=== PATIENT | male | born 1960 | race Caucasian/White ===

== ENCOUNTER 2019-04-28 07:11 | Emergency (ER) | payer BC ==
[~2019-04-28] VITALS: Ht 170.2 cm; Wt 87.3 kg
[2019-04-28] MEDS ORDERED: ONDANSETRON 4MG/2ML VIAL (J2405) IV ONE ×2 (07:45→08:00)
[2019-04-28] MEDS ORDERED: KETOROLAC 30 MG/ML VIAL (J1885) IV ONE (08:00)
[2019-04-28] MEDS ORDERED: NS 1,000 ML IV ONE (08:00)
[2019-04-28] MEDS: MORPHINE 4 MG/ML 1ML VIAL/SYRINGE (J2270) IV PRN ×2 (08:02→11:39)
[2019-04-28 08:31] LABS: BASO % 0.2 % (0.0-1.0); EOS % 0.2 % (0.0-3.0); HEMOGLOBIN 14.4 g/dl (13.5-17.5); LYMPH # 1.1 10^3/uL (1.5-4.5); LYMPH % 7.1 % (24.0-44.0); MEAN CORPUSCULAR HEMOGLOBIN 32.9 pg (27.0-33.0); MEAN CORPUSCULAR HGB CONC 34.3 g/dl (32.0-36.5); MEAN CORPUSCULAR VOLUME 95.9 fl (80.0-96.0); MONO # 1.4 10^3/uL (0.0-0.8); MONO % 8.9 % (0.0-5.0); NEUTROPHILS # 12.8 10^3/uL (1.8-7.7); NEUTROPHILS % 82.9 % (36.0-66.0); PLATELET COUNT, AUTOMATED 201 10^3/uL (150-450); RED BLOOD COUNT 4.38 10^6/uL (4.30-6.10); WHITE BLOOD COUNT 15.4 10^3/uL (4.0-10.0)
[2019-04-28] MEDS: GASTROGRAFIN SOLUTION 30ML PO SCH ×2 (08:36→09:10)
[2019-04-28] MEDS ORDERED: ISOVUE-370 76% 100ML VIAL (Q9967) As Ordered ONE (09:37)
[2019-04-28 09:44] LABS: BILIRUBIN,DIRECT 0.2 MG/DL (0.0-0.2); BILIRUBIN,TOTAL 0.9 MG/DL (0.2-1.0); POTASSIUM SERUM 4.3 MEQ/L (3.5-5.1); TOTAL PROTEIN 7.1 GM/DL (6.4-8.2)
--- NOTE | 2019-04-28 11:23 | ECGEPIP ---
[facility] - ED Test Date: 2019-04-28 Pat Name: REBECA ORNELAS Department: Room: - Gender: Male [employer]: : 1960 Requested By: Carina Loya PA-C Order Number: [id number] Reading MD: Luda Bazzi Measurements Intervals [place] Rate: 70 P: 29 SC: 137 QRS: 1 QRSD: 102 T: 9 QT: 373 QTc: 404 Interpretive Statements SINUS RHYTHM NSTTW abnormalities No prior Electronically Signed on 04-28-2019 11:23:25 EDT by Luda Bazzi
[2019-04-28] MEDS ORDERED: CIPR500T3 PO (12:33)
[2019-04-28] MEDS ORDERED: METR-265 PO (12:33)
[2019-04-28] MEDS ORDERED: IBUP80TA PO (12:33)
[2019-04-28] MEDS ORDERED: ENDO7.5T11 PO (12:33)
[2019-04-28 12:53] VITALS: BP 116/67
--- NOTE | 2019-04-28 15:02 | REP ---
Clinical: Lower abdominal pain. Technique: Axial contrast enhanced images from the lung bases to the pubic symphysis using oral (per protocol) and 100 ml Isovue 370 intravenous contrast material with coronal and sagittal re-formations. Comparison: None. Findings: Moderate mucosal thickening and pericolonic inflammatory stranding involves the midsigmoid colon within the pelvis with diffuse, but mild inflammatory changes within the mesentery and retroperitoneal space. Findings are consistent with acute diverticulitis. There is no drainable collection/abscess, free air or bowel obstruction. Remainder of the small large bowel is grossly unremarkable. Liver demonstrates few small subcentimeter hypodensities likely representing cysts. Spleen, pancreas, gallbladder, bilateral adrenal glands appear normal. A 3.7 cm right renal hypodensity is most compatible with cyst. Mild bilateral perinephric stranding is nonspecific. There is no hydroureteronephrosis or nephroureterolithiasis. Further evaluation of the pelvis demonstrates normal bladder and age appropriate prostate/seminal vesicles along with small forming left fat containing inguinal hernia. No ascites. No free air. No adenopathy. Abdominal aorta without aneurysm or dissection. Musculoskeletal structures demonstrate age-related changes without focal osseous abnormality. Lung bases are clear. Impression: 1. Mucosal thickening to the midsigmoid colon along with surrounding mild inflammatory changes to the mesentery and retroperitoneum is most compatible with acute sigmoid diverticulitis. No associated bowel obstruction, perforation, or drainable collection/abscess noted. 2. Hepatic and right renal hypodensities likely representing cysts. 3. Mild bilateral perinephric stranding is nonspecific and correlation with urinalysis may be warranted to exclude pyelonephritis. Electronically Signed by Ata Pennington MD 04/28/2019 10:00 A
== END 2019-04-28 13:13 | disposition home or self-care (01) ==
LOC: M ED 07:11
DX: K57.32 Diverticulitis of large intestine without perforation or abscess without bleeding (principal); R19.7 Diarrhea, unspecified; K59.00 Constipation, unspecified; Z20.9 Contact with and (suspected) exposure to unspecified communicable disease; G20 Parkinson's disease; R31.9 Hematuria, unspecified; F17.290 Nicotine dependence, other tobacco product, uncomplicated
CPT/HCPCS: 74177; 80047; 80076; 81001; 83690; 85025; 93005; 96361; 96374; 96375; 96376; 99284; J1885; J2270; J2405; Q9963; Q9967

== ENCOUNTER 2024-08-17 14:52 | Inpatient (IN) | payer BC, MEDICARE ==
[~2024-08-17] VITALS: Ht 170.2 cm; Wt 84.1 kg
[~2024-08-17 14:52] MED LIST: CIPR500T3 PO; ENDO7.5T11 PO; IBUP80TA PO; METR-265 PO
[2024-08-17] MEDS ORDERED: SILD50TA2 (15:01)
[2024-08-17 15:41] LABS: BASO % 0.3 % (0.0-1.0); EOS # 0.1 10^3/uL (0.0-0.5); EOS % 0.7 % (0.0-3.0); HEMATOCRIT 40.8 % (42.0-52.0); HEMOGLOBIN 13.9 g/dl (13.5-17.5); LYMPH # 1.5 10^3/uL (1.5-5.0); LYMPH % 21.3 % (24.0-44.0); MEAN CORPUSCULAR HEMOGLOBIN 32.9 pg (27.0-33.0); MEAN CORPUSCULAR HGB CONC 34.1 g/dl (32.0-36.5); MEAN CORPUSCULAR VOLUME 96.7 fl (80.0-96.0); MONO # 0.8 10^3/uL (0.0-0.8); MONO % 10.5 % (2.0-8.0); NEUTROPHILS # 4.8 10^3/uL (1.5-8.5); NEUTROPHILS % 67.1 % (36.0-66.0); PLATELET COUNT, AUTOMATED 218 10^3/uL (150-450); RED BLOOD COUNT 4.22 10^6/uL (4.30-6.10); WHITE BLOOD COUNT 7.1 10^3/uL (4.0-10.0)
[2024-08-17 16:06] LABS: LIPASE 31 U/L (12-53)
[2024-08-17 16:08] LABS: ALBUMIN 3.6 G/DL (3.2-5.2); ALKALINE PHOSPHATASE 55 U/L (46-116); ALT/SGPT 15 U/L (7.0-40); AST/SGOT 17 U/L (<34); BILIRUBIN,DIRECT 0.2 MG/DL (<0.4); BILIRUBIN,TOTAL 0.7 MG/DL (0.3-1.2); BLOOD UREA NITROGEN 18 MG/DL (9-23); CALCIUM LEVEL 9.6 MG/DL (8.3-10.6); CARBON DIOXIDE LEVEL 29 MMOL/L (20-31); CHLORIDE LEVEL 108 MMOL/L (98-107); CREATININE FOR GFR 0.91 MG/DL (0.70-1.30); GLOMERULAR FILTRATION RATE > 60.0 (>49); GLUCOSE, FASTING 95 MG/DL (74-106); POTASSIUM SERUM 4.9 MMOL/L (3.5-5.1); SODIUM LEVEL 138 MMOL/L (136-145); TOTAL PROTEIN 6.8 G/DL (5.7-8.2)
[2024-08-17] MEDS ORDERED: ISOVUE-370 76% 100ML VIAL As Ordered ONE (20:39)
[2024-08-17] MEDS: NS 1,000 ML IV ONE (23:01)
[2024-08-17] MEDS ORDERED: MED REC IN PROGRESS XX SCH (23:35)
[2024-08-17] MEDS ORDERED: MORPHINE 4 MG/ML 1ML VIAL IV PRN (23:40)
[2024-08-17] MEDS ORDERED: ACETAMINOPHEN 325 MG TAB PO PRN (23:40)
[2024-08-18] MEDS ORDERED: IBUP200C25 PO (00:17)
[2024-08-18] MEDS ORDERED: HOME MED LIST COMPLETE! XX SCH (00:20)
[2024-08-18] MEDS ORDERED: NICOTINE POLACRILEX 2 MG GUM PO PRN (01:00)
[2024-08-18] MEDS ORDERED: NICOTINE 7 MG/24 HR TRANSDERMAL TD PRN (01:00)
[2024-08-18 01:17] LABS: ERYTHROCYTE SEDIMENTATION RATE 29 mm/hr (0-20)
[2024-08-18] MEDS: MINI IV SCH ×2 (01:29→15:40)
[2024-08-18] MEDS: DEXTROSE 5% IV SCH ×2 (01:29→15:40)
[2024-08-18] MEDS: ADV IV SCH ×2 (01:29→15:40)
[2024-08-18] MEDS: CEFOTETAN DISODIUM IV SCH ×2 (01:29→15:40)
[2024-08-18 10:27] LABS: INR 1.06; PROTHROMBIN TIME 13.5 SECONDS (12.5-14.5)
[2024-08-18] MEDS ORDERED: MIDAZOLAM INJ 2MG/2ML VIAL As Ordered ONE (12:00)
[2024-08-18] MEDS ORDERED: SUGAMMADEX SODIUM 500 MG/5 ML VIAL (BRIDION) As Ordered ONE (12:00)
[2024-08-18] MEDS ORDERED: KETOROLAC 60MG 2ML VIAL As Ordered ONE (12:00)
[2024-08-18] MEDS ORDERED: ONDANSETRON 4MG 2ML VIAL As Ordered ONE (12:00)
[2024-08-18] MEDS ORDERED: LIDOCAINE 2% 100MG/5ML SDV (FOR ANES.) As Ordered ONE (12:00)
[2024-08-18] MEDS ORDERED: fentaNYL 250 MCG/5 ML INJECTION As Ordered ONE (12:00)
[2024-08-18] MEDS ORDERED: propofoL 200 MG/20 ML VIAL As Ordered ONE (12:00)
[2024-08-18] MEDS ORDERED: ROCURONIUM BROMIDE 50MG/5ML VIAL As Ordered ONE (12:00)
[2024-08-18] MEDS ORDERED: ACETAMINOPHEN 1000MG 100ML IV BAG As Ordered ONE (12:01)
[2024-08-18] MEDS ORDERED: ePHEDrine SULFATE 25 MG/5 ML(5MG/ML) SYRINGE As Ordered ONE (12:31)
[2024-08-18] MEDS ORDERED: HYDROMORPHONE HCL 0.5 MG/ 0.5 ML SYRINGE IV PRN (12:45)
[2024-08-18] MEDS ORDERED: METOCLOPRAMIDE INJ 10MG/2ML VIAL IV PRN (12:45)
[2024-08-18] MEDS: LR 1,000 ML IV SCH (12:45)
[2024-08-18] MEDS ORDERED: fentaNYL 100 MCG/2 ML INJECTION IV PRN (12:45)
[2024-08-18] MEDS ORDERED: diphenhydrAMINE 50MG/ML VIAL IV PRN (12:45)
[2024-08-18] MEDS ORDERED: MEPERIDINE 25 MG/ML 1ML VIAL IV PRN (12:45)
[2024-08-18] MEDS: ONDANSETRON 4MG 2ML VIAL IV PRN (13:17)
[2024-08-18] MEDS: oxyCODONE 5MG TAB PO PRN (13:17)
[2024-08-18 13:45] VITALS: BP 124/60; TEMP 97.2; O2SAT 97
[2024-08-18 14:15] VITALS: BP 119/61; TEMP 97.3; O2SAT 98
[2024-08-18 14:45] VITALS: BP 117/62; TEMP 97.9; O2SAT 97
[2024-08-18 15:45] VITALS: BP 116/63; TEMP 97.7; O2SAT 98
[2024-08-18] MEDS ORDERED: ACET32TAB PO (16:12)
[2024-08-18] MEDS ORDERED: OXYC1TAB23 PO (16:12)
[2024-08-18 16:45] VITALS: BP 113/63; TEMP 97.7; O2SAT 99
== END 2024-08-18 16:50 | disposition home or self-care (01) | DRG 399 ==
LOC: M ED 14:52 → M SDC 08-18 08:58 → M MS5PR 08-18 13:40
PROVIDERS: ADMIT Surgery; ATTEND Surgery
PROC: 8E0W4CZ Robotic Assisted Procedure of Trunk Region, Percutaneous Endoscopic Approach (ICD-10-PCS; 2024-08-18)
PROC: 0DTJ4ZZ Resection of Appendix, Percutaneous Endoscopic Approach (ICD-10-PCS; principal; 2024-08-18 16:30)
DX: K35.80 Unspecified acute appendicitis (principal); F17.290 Nicotine dependence, other tobacco product, uncomplicated; Z90.49 Acquired absence of other specified parts of digestive tract; Z71.6 Tobacco abuse counseling